=== PATIENT | female | born 1965 | race Caucasian/White ===

== ENCOUNTER 2024-01-01 15:13 | Day surgery (SDC) | payer BC ==
[2024-01-01] MEDS ORDERED: LIDOCAINE HCL 1% AMPUL 5 ML IJ ONE (15:14)
[2024-01-01] MEDS ORDERED: Sodium Chloride 0.9(Preservative Free) 10 ML IJ ONE (15:14)
[2024-01-01] MEDS ORDERED: Depo-Medrol 40 MG/ML IM ONE (15:14)
--- NOTE | 2024-01-01 19:16 | XRAY ---
Indication: Lumbar DAMEON. Intraoperative fluoroscopy provided for 18 seconds. 5 digital spot images submitted for interpretation demonstrates posterior needle tip projecting posterior to L4-L5 interspace. Small amount of contrast injected for needle tip placement. Correlate with intraoperative findings/report.
--- NOTE | 2024-01-02 08:37 | XRAY ---
18 seconds of fluoroscopy was used in surgery for a lumbar DAMEON.
== END 2024-01-01 18:50 | disposition home or self-care (01) ==
LOC: SDC-PAIN 15:13
PROVIDERS: ATTEND Psychiatry & Neurology Pain Medicine
DX: M54.16 Radiculopathy, lumbar region (principal); E11.9 Type 2 diabetes mellitus without complications
CPT/HCPCS: 62323; 72100; 77002; 82947; Q9966